=== PATIENT | male | born 1985 | race African-American/Black ===

== ENCOUNTER 2022-07-06 15:11 | Emergency (ER) | payer OTHER ==
[2022-07-06] MEDS ORDERED: BUPIVACAINE 0.5% PF 10 ML VIAL ONE (15:28)
[2022-07-06] MEDS ORDERED: LIDOCAINE 1% 20 ML MDV ONE (15:29)
[2022-07-06] MEDS ORDERED: HYDROCODONE/APAP 7.5/325 MG TAB ONE (15:29)
[2022-07-06] MEDS ORDERED: TETANUS & DIPHTHERIA TOX,ADULT 0.5 ML VIAL ONE (15:30)
--- NOTE | 2022-07-06 16:16 | RAD REPORT ---
EXAM DESCRIPTION: RAD - Hand Left 3 View - 07/06/2022 4:10 pm CLINICAL HISTORY: left thumb crush injury COMPARISON: No comparisons FINDINGS/IMPRESSION: Minimally displaced fracture involving the mid-diaphysis of the thumb's distal phalanx. No intra-articular extension. Alignment is near anatomic.
[2022-07-06] MEDS ORDERED: WATER FOR INJ,STERILE 10 ML ONE (17:46)
[2022-07-06] MEDS ORDERED: CEFAZOLIN SODIUM 1 GM/VIAL ONE (17:46)
--- NOTE | 2022-07-06 17:51 | ER ---
Nurse's Notes [facility] Name: Melodie Hightower Age: 37 yrs Sex: Male : 1985 Arrival Date: 07/06/2022 Time: 15:15 Bed 12 Private MD: Diagnosis: Nondisplaced fracture of distal phalanx of left thumb, initial encounter for open fracture Presentation: 07/06 15:15 Chief complaint: Patient states: Thumb slammed in longterm door 3 hours ago. Coronavirus ss screen: Client denies travel out of the [place] in the last 14 days. Ebola Screen: Patient denies exposure to infectious person. Patient denies travel to an Ebola-affected area in the 21 days before illness onset. Initial Sepsis Screen: Does the patient meet any 2 criteria? No. Patient's initial sepsis screen is negative. Does the patient have a suspected source of infection? No. Patient's initial sepsis screen is negative. Risk Assessment: Do you want to hurt yourself or someone else? Patient reports no desire to harm self or others. Onset of symptoms was July 06, 2022. 15:15 Method Of Arrival: Ambulatory ss 15:15 Acuity: CARLIE 3 ss Historical: - Allergies: 15:18 No Known Allergies; ss - Home Meds: 15:18 None [Active]; ss - PMHx: 15:18 None; ss - PSHx: 15:18 None; ss - Immunization history:: Client reports having NOT received the Covid vaccine. - Social history:: Smoking status: Patient denies any tobacco usage or history of. Screenin:47 Abuse screen: Denies threats or abuse. Denies injuries from another. Nutritional iw screening: No deficits noted. Tuberculosis screening: No symptoms or risk factors identified. Fall Risk None identified. Assessment: 15:45 General: Appears in no apparent distress. Behavior is calm, cooperative. Pain: iw Complains of pain in dorsal aspect of distal phalanx of left thumb. Neuro: Level of Consciousness is awake, alert, obeys commands, Oriented to person, place, time, situation. Derm:. Musculoskeletal: Range of motion: intact in all extremities. Injury Description: Avulsion sustained to left thumbnail is partial was sustained 1-2 hours ago. Vital Signs: 15:15 BP 146 / 100; Pulse 66; Resp 16; Temp 98.4(TE); Pulse Ox 100% on R/A; Weight 84.37 kg; ss Height 5 ft. 9 in. (175.26 cm); Pain 10/10; 15:15 Body Mass Index 27.47 (84.37 kg, 175.26 cm) ED Course: 15:15 Patient arrived in ED. ss 15:15 Francis Saba is PHCP. jl9 15:15 Angelo Sosa MD is Attending Physician. jl9 15:17 PHCP role handed off by Francis Saba cp 15:17 Huseyin Bear PA is PHCP. cp 15:18 Triage completed. ss 15:18 Arm band placed on right wrist. ss 15:27 Daija Ortega, SHELLEY is Primary Nurse. iw 16:11 XRAY Hand LEFT 3 View In Process Unspecified. EDMS 17:49 Sunny Herrera MD is Referral Physician. cp Administered Medications: 15:51 Drug: Tetanus-Diphtheria Toxoid Adult 0.5 ml {Yard Inspector: [employer]. Exp: iw 11/13/2027. Lot #: [id number]. } Route: IM; Site: left ventrogluteal; 15:51 Drug: Hydrocodone-Acetaminophen (7.5 mg-325 mg) 1 tabs Route: PO; iw 17:30 Drug: Lidocaine (1 %) 10 ml {Note: admin by PA. Inder} Volume: 5 ml; Route: iw Infiltration; 17:30 Drug: Marcaine (bupivacaine) (0.5 %) 10 ml {Note: admin by PA. Inder} Volume: 10 iw ml; Route: Infiltration; 18:11 Drug: Ancef (cefazolin) 1 grams Route: IM; Site: right ventrogluteal; iw Outcome: 17:51 Discharge ordered by . cp 18:14 Patient left the ED. iw Signatures: Dispatcher [employer] EDMS Daija Ortega RN RN Amina Feldman RN RN ss Page, Corey, PA PA cp Francis Saba jl9 Corrections: (The following items were deleted from the chart) 15:20 15:18 PMHx: Unable to Obtain; ss ss 15:20 15:18 PSHx: Unable to Obtain; ss ss
--- NOTE | 2022-07-06 17:51 | EDPHYS ---
Physician Documentation [facility] Name: Melodie Hightower Age: 37 yrs Sex: Male : 1985 Arrival Date: 07/06/2022 Time: 15:15 Bed 12 Private MD: ED Physician Angelo Sosa HPI: 07/06 16:00 This 37 yrs old Black Male presents to ER via Ambulatory with complaints of Thumb cp Injury. 16:00 The patient or guardian reports injury. The complaints affect the distal phalanx of cp left thumb. Context: The problem was sustained at a [facility]. 16:00 Onset: The symptoms/episode began/occurred 3 hour(s) ago. Associated signs and cp symptoms: The patient has no apparent associated signs or symptoms. Patient reports crush injury from heavy, electric, metal door at [facility] to left distal thumb phalanx. Historical: - Allergies: 15:18 No Known Allergies; ss - Home Meds: 15:18 None [Active]; ss - PMHx: 15:18 None; ss - PSHx: 15:18 None; ss - Immunization history:: Client reports having NOT received the Covid vaccine. - Social history:: Smoking status: Patient denies any tobacco usage or history of. ROS: 16:05 MS/extremity: Positive for injury or acute deformity, decreased range of motion, pain, cp of the dorsal aspect of distal phalanx of left thumb, Negative for paresthesias. 16:05 Constitutional: Negative for fever. cp 16:05 All other systems are negative. Exam: 16:10 Constitutional: The patient appears in no acute distress, alert, awake, non-toxic, well cp developed, well nourished. 16:10 Head/Face: Normocephalic, atraumatic. cp 16:10 Chest/axilla: Inspection: normal. 16:10 Cardiovascular: Rate: normal. 16:10 Respiratory: the patient does not display signs of respiratory distress, Respirations: normal. 16:10 Abdomen/GI: Inspection: abdomen appears normal. 16:10 Back: pain, is absent, ROM is normal. 16:10 Musculoskeletal/extremity: Extremities: grossly normal except: noted in the distal phalanx left thumb: pain, swelling, tenderness, ROM: full active range of motion, in the left thumb, Perfusion: the extremity is normally perfused throughout, left thumb, the left thumb Sensation intact. Nails: partial avulsion, left thumb, nailbed of left thumb with noted laceration, mild bleeding noted, . Vital Signs: 15:15 BP 146 / 100; Pulse 66; Resp 16; Temp 98.4(TE); Pulse Ox 100% on R/A; Weight 84.37 kg; ss Height 5 ft. 9 in. (175.26 cm); Pain 10/10; 15:15 Body Mass Index 27.47 (84.37 kg, 175.26 cm) ss Laceration: 18:00 Wound Repair of 2cm ( 0.8in ) subcutaneous laceration to nailbed of left thumb. Linear cp shaped.. Distal neuro/vascular/tendon intact. Anesthesia: Digital block administered with 12 mls of Lido/Marcaine. Wound prep: Moderate cleansing by me, Wound irrigation by me. Skin closed with 6 5-0 Vicryl using interrupted sutures and sterile technique. nail replaced closed with 4 4-0 Prolene using interrupted sutures and sterile technique. Dressed with tube gauze, finger splint. Patient tolerated well. MDM: 15:15 Patient medically screened. jl9 17:51 Data reviewed: vital signs, nurses notes, radiologic studies, plain films. 17:51 Test interpretation: by ED physician or midlevel provider: plain radiologic studies. cp Counseling: I had a detailed discussion with the patient and/or guardian regarding: the historical points, exam findings, and any diagnostic results supporting the discharge/admit diagnosis, radiology results, the need for outpatient follow up, a hand specialist, to return to the emergency department if symptoms worsen or persist or if there are any questions or concerns that arise at home. Response to treatment: the patient's symptoms have markedly improved after treatment, and as a result, I will discharge patient. 07/06 15:19 Order name: XRAY Hand LEFT 3 View; Complete Time: 16:18 cp 07/06 16:18 Interpretation: Report reviewed. 07/06 15:19 Order name: Dressing - Wound; Complete Time: 15:54 cp 07/06 15:19 Order name: Gloves, Sterile; Complete Time: 17:39 07/06 15:19 Order name: Setup Suture Tray; Complete Time: 17:39 07/06 17:31 Order name: Finger Splint; Complete Time: 18:11 cp Administered Medications: 15:51 Drug: Tetanus-Diphtheria Toxoid Adult 0.5 ml {Building Consultant: [employer]. Exp: iw 11/13/2027. Lot #: [id number]. } Route: IM; Site: left ventrogluteal; 15:51 Drug: Hydrocodone-Acetaminophen (7.5 mg-325 mg) 1 tabs Route: PO; iw 17:30 Drug: Lidocaine (1 %) 10 ml {Note: admin by PA. Inder} Volume: 5 ml; Route: iw Infiltration; 17:30 Drug: Marcaine (bupivacaine) (0.5 %) 10 ml {Note: admin by PA. Inder} Volume: 10 iw ml; Route: Infiltration; 18:11 Drug: Ancef (cefazolin) 1 grams Route: IM; Site: right ventrogluteal; iw Disposition Summary: 07/06/22 17:51 Discharge Ordered Location: Home cp Problem: new cp Symptoms: have improved cp Condition: Stable cp Diagnosis - Nondisplaced fracture of distal phalanx of left thumb, initial encounter for open cp fracture Followup: cp - With: Sunny Herrera MD - When: 2 - 3 days - Reason: Wound Recheck Discharge Instructions: - Discharge Summary Sheet cp - Laceration Care, Adult cp - Thumb Fracture cp - Nail Bed Injury cp - Fingernail or Toenail Removal, Adult cp Forms: - Medication Reconciliation Form cp - Thank You Letter cp - Antibiotic Education cp - Prescription Opioid Use cp Prescriptions: - Cephalexin 500 mg Oral Capsule - take 1 capsule by ORAL route every 6 hours for 10 days; 40 capsule; Refills: 0, cp Product Selection Permitted - Ibuprofen 800 mg Oral Tablet - take 1 tablet by ORAL route every 8 hours As needed take with food; 30 tablet; cp Refills: 0, Product Selection Permitted - Tylenol-Codeine #3 300 mg-30 mg Oral - take 2 tablet by ORAL route every 6-8 hours; 16 tablet; Refills: 0, Product cp Selection Permitted Signatures: Dispatcher [employer] Daija Darby RN RN iw Amina Feldman RN RN ss Huseyin Bear PA PA cp Linares, John jl9 Corrections: (The following items were deleted from the chart) 15:20 15:18 PMHx: Unable to Obtain; ss ss 15:20 15:18 PSHx: Unable to Obtain; ss ss
[2022-07-06 18:23] VITALS: BP 146/100; TEMP 98.4; O2SAT 100
== END 2022-07-06 18:14 | disposition home or self-care (01) ==
LOC: ER 15:11
PROC: 0JQK0ZZ Repair Left Hand Subcutaneous Tissue and Fascia, Open Approach (ICD-10-PCS; principal; 2022-07-06)
DX: S62.525A Nondisplaced fracture of distal phalanx of left thumb, initial encounter for closed fracture (principal); Z23 Encounter for immunization
CPT/HCPCS: 73130; 90471; 90714; 96372; 99283; 12001; J0690